=== PATIENT | male | born 1955 | race Caucasian/White ===

== ENCOUNTER → 2017-05-16 | Outpatient (CLI) | payer OTHER ==
[2015-02-17 11:13] VITALS: BP 124/72
--- NOTE | 2017-05-16 13:51 | CT ---
Examination: CT of the sinuses. Clinical history: Chronic maxillary sinusitis. Technique: Multiple axial images were obtained to evaluate the sinuses. Coronal reformatted images we re obtained. Dose reduction techniques including automated exposure control (AEC) and adjustment of m A and kV were utilized. Comparison: None available. Findings: There is patchy opacification of the ethmoid air cells seen bilaterally, with mild mucosal thickening seen in the maxillary sinuses bilaterally and the frontal sinus, consistent with inflammatory sinus disease. The sphenoid sinuses are clear. The ostiomeatal units are patent bilaterally. The nasal septum is deviated to the right and there is a 5 mm bony nasal spur seen projecting to the right. No additional bony or soft tissue abnormality is noted. Impression: 1. Inflammatory sinus disease, as described above. Reported By:
== END ==
LOC: RAD 12:50
PROVIDERS: ATTEND Internal Medicine
DX: J32.0 Chronic maxillary sinusitis (principal); G47.33 Obstructive sleep apnea (adult) (pediatric)
CPT/HCPCS: 70486